=== PATIENT | male | born 1960 | race Caucasian/White ===

== ENCOUNTER 2021-02-13 08:05 | Emergency (ER) | payer OTHER, SELFPAY ==
--- NOTE | ~2021-02-13 | XR_ITS ---
EXAMINATION: XR elbow LT min 3V EXAM DATE: 02/13/2021 08:33 INDICATION: swelling, fall onto elbow x 4 days ago . TECHNIQUE: Left elbow frontal, lateral with flexion, and oblique projections obtained and reviewed. There is no prior study for comparison. FINDINGS: Left elbow anterior humeral line intact. There are no acute fractures or dislocations i dentified. There is no subcutaneous gas. Large amount of posterior soft tissue swelling, some over the olecranon bursa which could indicate bursal fluid or blood products given history. No elbow joint effusion suspected. There are no radiopaque foreign bodies. IMPRESSION: Generalized posterior swelling with more focal prominence over olecranon bursa, could be effusion or blood within. No acute osseous findings. Reviewed, dictated and finalized at location A. IMPRESSION: Generalized posterior swelling with more focal prominence over olec ranon bursa, could be effusion or blood within. No acute osseous findings.
[2021-02-13 08:12] VITALS: BP 171/84; PULSE 79; RESP 16; TEMP 36.8; O2SAT 100
--- NOTE | 2021-02-13 08:27 | ED.UPPEXIN ---
HPI - Extremity Injury (Upper) General Chief Complaint: Fall Stated Complaint: fall elbow injury Time Seen by Provider: 02/13/21 08:13 Source: patient and RN notes reviewed Mode of arrival: ambulatory Limitations: no limitations History of Present Illness HPI narrative: This is a 61 year old male right hand dominant who presents for evaluation left elbow pain s/p fall. Patient states he fell on Friday and he hit his left elbow on door frame of his home. He denies hitting his head or LOC. He has been having pain to his left elbow since his fall. He reports he had redness to his left forearm yesterday but is has resolved. He reports tingling to his fingers. Denies fever or chills. His last tetanus was 5 years ago. Pain worse with movement. Related Data Allergies Allergy/AdvReac Type Severity Reaction Status Date / Time No Known Allergies Allergy Mild Verified 11/25/09 23:47 Review of Systems Review of Systems: All systems reviewed & are unremarkable except as noted in HPI and below PMFSH Past Medical History Medical History (Updated 02/13/21 @ 09:26 by Gisela Childers MD) Hepatitis C Surgical History Surgical History (Updated 02/13/21 @ 08:31 by Gisela Childers MD) Hx of cholecystectomy Social History Social History (Updated 02/13/21 @ 08:31 by Gisela Childers MD) Smoking packs per day: 2 Smoking cigarettes per day: 40.0 Smoking status: Current every day smoker Alcohol intake: former 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 FROM. Psych: Mental Status: mental status grossly normal Affect: normal affect Course Reevaluation(s) Reevaluation #1: I discussed with patient xray findings. He will be treated for bursitis possible infection. Date: 02/13/21 Time: 09:23 Vital Signs Vital signs: Vital Signs Temperature 98.2 F 02/13/21 08:12 Pulse Rate 79 02/13/21 08:12 Respiratory Rate 16 02/13/21 08:12 Blood Pressure 171/84 H 02/13/21 08:12 Pulse Oximetry 100 02/13/21 08:12 Temperature 98.2 F 02/13/21 08:12 Pulse Rate 74 02/13/21 09:44 Respiratory Rate 12 02/13/21 09:44 Blood Pressure 145/90 H 02/13/21 09:44 Pulse Oximetry 98 02/13/21 09:44 MDM - Extremity Injury (Upper) Imaging Data Radiologist's impression: ITS Impressions Elbow X-Ray 02/13/21 08:48 IMPRESSION: Generalized posterior swelling with more focal prominence over olecranon bursa, could be effusion or blood within. No acute osseous findings. Discharge Plan Discharge Clinical Impression: Bursitis of left elbow Qualifiers: Elbow bursitis location: olecranon bursitis Qualified Code(s): M70.22 - Olecranon bursitis, left elbow Patient Disposition: Home, Self-Care Condition: Stable Instructions: Antibiotic Form, Elbow Bursitis (ED) Additional Instructions: today you were being treated for inflammation of your bursa. Take antibiotics as prescribed. Prescriptions: New doxycycline monohydrate 100 mg tablet 100 mg PO BID Qty: 14 RF: 0 cephalexin 500 mg capsule 500 mg PO Q6H 7 Days Qty: 28 RF: 0 Follow-up/Referrals: Timoteo Michel MD [Physician] - PHYSICIAN,SUPERVISOR INSTRUMENT MAINTENANCE [Primary Care Provider] -
[2021-02-13] MEDS: IBUPROFEN 600 MG TABLET PO (08:42)
[2021-02-13] MEDS: CEPHALEXIN 500 MG CAPSULE PO (09:31)
[2021-02-13] MEDS: DOXYCYCLINE HYCLATE 100 MG TABLET PO (09:31)
[2021-02-13 09:44] VITALS: BP 145/90; PULSE 74; RESP 12; O2SAT 98
== END 2021-02-13 09:45 | disposition home or self-care (01) ==
PROVIDERS: Emergency Provider General Practice
DX: M70.22 Olecranon bursitis, left elbow (principal); F17.210 Nicotine dependence, cigarettes, uncomplicated; W01.198A Fall on same level from slipping, tripping and stumbling with subsequent striking against other object, initial encounter
CPT/HCPCS: 73080; 99283; A9270

== ENCOUNTER 2021-04-09 08:45 | Outpatient (CLI) | payer OTHER, SELFPAY ==
--- NOTE | 2021-04-09 | EST_ITS ---
Patient Info Name: Aguila Miller Age: 61 years : 1960 Gender: Male Ht: 73 in Wt: 190 lbs BSA: 2.11 m2 HR: 75 bpm BP: 167 / 98 mmHg Heart Rhythm: Sinus Rhythm Exam Date: 04/09/2021 9:55 AM Exam Location: [facility] Stress Patient Status: Outpatient Admit Date: 04/09/2021 Staff Ordering Physician: ChristianoRossy Attending Provider: Christiano, Rossy LEONARDO Exercise Technologist: Jessica Anderson CT Exercise Physician: Tl Godfrey MD Exam Type: CA stress test treadmill Study Info Indications I20.0 - Unstable angina An exercise stress test was performed. Summary 1. Exercise-induced chest tightness which resolved soon in recovery. 2. No ischemic EKG changes induced up to level of 87% of max predicted heart rate for age. 3. Hypertensive blood pressure response exercise. 4. Because of his risk factors and reproducible chest pain with exercise, further cardiac evaluation is appropriate and recommended. Protocol: [facility] Stress ECG Details Stage: REST Duration (min): 3 min : 42 sec Speed (mph): 0.0 Grade (%): 0 HR (bpm): 81 SBP (mmHg): 167 DBP (mmHg): 98 METS: --- Stage: REST Duration (min): 22 min : 42 sec Speed (mph): 0.0 Grade (%): 0 HR (bpm): 85 SBP (mmHg): 167 DBP (mmHg): 98 METS: --- Stage: STAGE 1 Duration (min): 1 min : 0 sec Speed (mph): 1.7 Grade (%): 10 HR (bpm): 112 SBP (mmHg): 167 DBP (mmHg): 98 METS: --- Stage: STAGE 1 Duration (min): 2 min : 0 sec Speed (mph): 1.7 Grade (%): 10 HR (bpm): 116 SBP (mmHg): 167 DBP (mmHg): 98 METS: --- Stage: STAGE 1 Duration (min): 3 min : 0 sec Speed (mph): 1.7 Grade (%): 10 HR (bpm): 120 SBP (mmHg): 217 DBP (mmHg): 80 METS: --- Stage: STAGE 2 Duration (min): 1 min : 0 sec Speed (mph): 2.5 Grade (%): 12 HR (bpm): 127 SBP (mmHg): 217 DBP (mmHg): 80 METS: --- Stage: STAGE 2 Duration (min): 2 min : 0 sec Speed (mph): 2.5 Grade (%): 12 HR (bpm): 130 SBP (mmHg): 213 DBP (mmHg): 88 METS: --- Stage: STAGE 2 Duration (min): 3 min : 0 sec Speed (mph): 3.4 Grade (%): 14 HR (bpm): 138 SBP (mmHg): 213 DBP (mmHg): 88 METS: --- Stage: RECOVERY Duration (min): 1 min : 0 sec Speed (mph): 0.0 Grade (%): 0 HR (bpm): 115 SBP (mmHg): 180 DBP (mmHg): 87 METS: --- Stage: RECOVERY Duration (min): 2 min : 0 sec Speed (mph): 0.0 Grade (%): 0 HR (bpm): 99 SBP (mmHg): 180 DBP (mmHg): 87 METS: --- Stage: RECOVERY Duration (min): 3 min : 0 sec Speed (mph): 0.0 Grade (%): 0 HR (bpm): 99 SBP (mmHg): 178 DBP (mmHg): 87 METS: --- Stage: RECOVERY Duration (min): 3 min : 19 sec Speed (mph): 0.0 Grade (%): 0 HR (bpm): 93 SBP (mmHg): 178 DBP (mmHg): 87 METS: --- Rest HR: 85 bpm Peak HR:
== END 2021-04-09 08:46 | disposition home or self-care (01) ==
LOC: ANHCARD 08:47
PROVIDERS: Visit Provider Physician Assistant
DX: I20.9 Angina pectoris, unspecified (principal)
CPT/HCPCS: 93017

== ENCOUNTER 2021-04-12 08:07 | Emergency (ER) | payer OTHER, SELFPAY ==
[2021-04-12 08:18] VITALS: BP 155/98; PULSE 90; RESP 20; TEMP 36.5; O2SAT 100
[2021-04-12 09:13] LABS: Basophils Absolute Auto 0.1 K/mm3 (0.0-0.1); Basophils Percent Auto 0.6 % (0.2-1.2); Eosinophils Absolute Auto 0.5 K/mm3 (0-0.3); Eosinophils Percent Auto 4.6 % (0-4.4); Hematocrit 43.4 % (42.0-52.0); Hemoglobin 14.9 g/dL (14.0-18.0); Immature Granulocyte Absolute 0.03 K/mm3 (0.00-0.031); Immature Granulocyte Percent A 0.3 % (0-0.5); Lymphocytes Absolute Auto 1.79 K/mm3 (0.9-3.2); Lymphocytes Percent Auto 18.2 % (18.3-44.2); Mean Corpuscular HGB Conc 34.3 g/dl (32-36); Mean Corpuscular Hemoglobin 30.3 pg (26-34); Mean Corpuscular Volume 88.4 fl (80-100); Mean Platelet Volume 8.6 fl (7.4-10.4); Monocytes Absolute Auto 0.9 K/mm3 (0.1-0.6); Monocytes Percent Auto 8.8 % (2.6-8.5); Neutrophils Absolute Auto 6.7 K/mm3 (1.3-6.7); Neutrophils Percent Auto 67.5 % (45.5-73.1); Platelet Count Result 328 k/mm3 (150-375); Red Blood Count 4.91 M/mm3 (4.6-6.20); Red Cell Distribution Width 13.2 % (11.5-14.5); White Blood Count 9.9 K/mm3 (4.5-10.0)
[2021-04-12 09:26] LABS: Alanine Aminotransferase 68 U/L (4-50); Albumin Level 4.4 g/dL (3.5-5.1); Alkaline Phosphatase 98 U/L (38-126); Anion Gap 7 mmol/L (8-16); Aspartate Amino Transferase 48 U/L (17-59); Bilirubin,Total 0.7 mg/dL (0.2-1.3); Blood Urea Nitrogen 12 mg/dL (9-20); Calcium 9.6 mg/dL (8.4-10.2); Carbon Dioxide 26 mmol/L (22-30); Chloride 100 mmol/L (98-107); Estimated CRCL calculation 85 ml/min; Estimated Glomerular Filt Rate > 60; Glucose 103 mg/dL (65-110); Potassium 4.5 mmol/L (3.4-5.0); Sodium 133 mmol/L (137-145)
[2021-04-12 09:30] VITALS: BP 147/96; PULSE 73; RESP 20; O2SAT 98
[2021-04-12 09:33] LABS: D Dimer 0.46 ug/mL (<0.48)
[2021-04-12] MEDS: IBUPROFEN 400 MG TABLET 800 MG PO (09:55)
[2021-04-12] MEDS: CYCLOBENZAPRINE HCL 10 MG TABLET PO (09:55)
--- NOTE | 2021-04-12 09:59 | ED.EXTPRO ---
HPI - Extremity Problem General Chief complaint: Extremity Problem,Nontraumatic Stated complaint: Numbness to right foot Time Seen by Provider: 04/12/21 08:11 Source: patient Mode of arrival: ambulatory Limitations: no limitations History of Present Illness HPI Narrative: 61-year-old male Usually healthy Here for back pain and a numb feeling in his right leg He reports that he has had some back discomfort for a few weeks No history of injury, pain is in the low back in the right buttocks, and sometimes worse with movements He says he is usually very active but this has been limiting him and this morning he felt like the bottom of his foot and the side of his lower leg felt numb when he awakened This is improving when he is seen and nearly back to normal He saw his PCP in [place] 2 or 3 weeks ago and had a stress test done which he passed and sounds like he might have hepatitis C as well, but no evaluation of the back symptoms was done and when he had the numbness this morning he understandably decided to be evaluated in the ED No history of malignancy, no IV drug use, no fever, no bowel or bladder symptoms He smokes 2 packs a day Related Data Allergies Allergy/AdvReac Type Severity Reaction Status Date / Time No Known Allergies Allergy Mild Verified 04/12/21 08:21 Review of Systems Review of Systems: All systems reviewed & are unremarkable except as noted in HPI and below Constitutional: Constitutional: Reports no additional constitutional complaints, Denies chills, Reports fatigue, Denies fever(s), Denies headache(s) and Reports weakness Eyes: Eyes: Reports no additional eye complaints and Denies change in vision ENT: Denies headache(s) and Denies sore throat Cardiovascular: Cardiovascular: Reports chest pain and Denies dyspnea Respiratory: Respiratory: Denies cough and Denies dyspnea Gastrointestinal: Gastrointestinal: Denies abdominal pain, Denies diarrhea, Denies nausea and Denies vomiting Genitourinary: Genitourinary: Denies dysuria and Denies urinary frequency Musculoskeletal: Musculoskeletal: Reports back pain, Reports myalgias, Denies deformity, Denies arthralgias, Denies joint swelling, Reports muscle cramps and Denies numbness Integumentary/Breasts: Skin/Breast: Denies rash and Denies wounds Neurologic: Denies headache(s), Denies focal weakness and Reports numbness Psychiatric: Psychiatric: Reports no additional psychiatric complaints Endocrine: Endocrine: Reports no additional endocrine complaints Hematologic/Lymphatic: Hematologic/Lymphatic: Reports no additional hematologic/lymphatic complaints Allergic/Immunologic: Allergic/Immunologic: Reports no additional allergic/immunologic complaints PMFSH Past Medical History Medical History Hepatitis C Surgical History Surgical History Hx of cholecystectomy Social History Social History Smoking packs per day: 2 Smoking cigarettes per day: 40.0 Smoking status: Current every day smoker Alcohol intake: former 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 Exam Const: General: cooperative, no acute distress and alert Orientation/consciousness: patient oriented x3 (alert) HENMT: Head: normal to inspection, normocephalic and atraumatic Ears: external ears normal General nose exam: no epistaxis Eyes: Conjunctivae: conjunctivae normal EOM: EOMs intact bilaterally Neck: Neck: normal visual inspection, supple and no JVD Resp: Effort & Inspection: normal respiratory effort and not labored Auscultation: clear to auscultation bilaterally and other (BS =) Cardio: Rate: regular rate Rhythm: regular rhythm Heart sounds: no murmurs GI: GI Palp: Yes Soft to palpation and No Tenderness to palpation present (GI) Back/Spine/Pelvis: Other: There is mild lower lumbar and r
[2021-04-12 10:33] LABS: Folic Acid 7.2 ng/mL (2.76->20)
[2021-04-12 10:35] VITALS: BP 155/98; PULSE 74; RESP 16; O2SAT 100
[2021-04-12 12:02] LABS: Total Triiodothyronine (T3) 1.72 NG/ML (0.97-1.69)
== END 2021-04-12 10:40 | disposition home or self-care (01) ==
PROVIDERS: Emergency Provider Emergency Medicine
DX: M54.41 Lumbago with sciatica, right side (principal); F17.210 Nicotine dependence, cigarettes, uncomplicated
CPT/HCPCS: 36415; 80053; 82607; 82746; 84439; 84443; 84480; 85025; 85380; 99283; A9270

== ENCOUNTER 2021-05-02 08:58 | Outpatient (CLI) | payer OTHER, SELFPAY ==
--- NOTE | 2021-05-02 | ECG_ITS ---
Measurements Intervals [place] Rate: 61 P: 56 MS: 175 QRS: 63 QRSD: 102 T: 65 QT: 378 QTc: 382 Interpretive Statements SINUS RHYTHM NORMAL ECG Electronically Signed On 05-02-2021 10:28:37 LIFE SKILLS TEACHER by Kev Mcrae D.O.
--- NOTE | ~2021-05-02 | XR_ITS ---
EXAMINATION: XR chest 2V DATE: 05/02/2021 09:49 INDICATION: Angina pectoralis TECHNIQUE: PA and lateral views of the chest were obtained. COMPARISON: Chest radiograph dated 08/30/2015 FINDINGS: The lungs remain clear with no focal airspace opacities, pulmonary edema, pleural effusion or pneumot horax. The cardiomediastinal silhouette is normal. Cholecystectomy clips in right upper quadrant. Mil d thoracic spondylosis. IMPRESSION: 1. No acute cardiopulmonary disease. Reviewed, dictated and finalized at location A. NING STAFF SUPERVISOR
--- NOTE | ~2021-05-02 | CT_ITS ---
EXAMINATION: CT lung screening DATE: 05/02/2021 09:15 INDICATION: EDEMA OF LOWER EXTREMITY TECHNIQUE: Computed tomography (CT) of the chest was performed without intravenous contrast. Addition al 3D reconstructions utilizing coronal maximum intensity projection (MIP) were performed. Automated exposure control and iterative reconstruction technique were employed. The dose-length product was 14 4.24 mGy-cm. COMPARISON: None FINDINGS: Mild emphysema the apices. 4 mm pulmonary nodules in the right middle lobe and a couple in the left l ower lobe. No pneumonia, pulmonary edema or pleural effusion. Heart size is normal. No pericardial ef fusion. Thoracic aorta is normal in caliber. No pathologically enlarged thoracic lymphadenopathy. Cho lecystectomy clips the gallbladder fossa. Small hepatic calcification consistent with old granulomato us disease. Couple subcentimeter low-attenuation lesions at the dome of the liver most likely hepatic cysts or hemangiomas. Mild thoracic spondylosis with chronic appearing minimal to mild anterior wedg ing at T11-L1. IMPRESSION: 1. Lung-RADS category 2: Benign appearance or behavior. Continue annual screening with noncontrast lo w-dose chest CT in 12 months. Reviewed, dictated and finalized at location A. PILOT IMPRESSION: 1. Lung-RADS category 2: Benign appearance or behavior. Continue annual screeni ng with noncontrast low-dose chest CT in 12 months.
--- NOTE | ~2021-05-02 | US_ITS ---
EXAMINATION: US venous doppler LE RT DATE: 05/02/2021 09:55 INDICATION: Right lower limb swelling TECHNIQUE: Grayscale ultrasound images without and with compression and Doppler ultrasound images of the right lower extremity veins were obtained. COMPARISON: None. FINDINGS: The visualized portions of right common femoral vein, profunda (deep) femoral vein, femoral vein, pop liteal vein, posterior tibial veins, peroneal veins, gastrocnemius vein and greater saphenous vein ou tflow are patent. IMPRESSION: 1. No deep venous thrombosis in the right lower limb. Reviewed, dictated and finalized at location A. BER RUNNER
--- NOTE | ~2021-05-02 | US_ITS ---
EXAMINATION: US soft tissue head and neck DATE: 05/02/2021 09:56 INDICATION: Localized enlarged lymph nodes. TECHNIQUE: Multiple grayscale and Doppler ultrasound images of the neck were obtained. COMPARISON: None FINDINGS: There are normal lymph nodes in the neck bilaterally. IMPRESSION: 1. No abnormal neck mass or lymphadenopathy. Reviewed, dictated and finalized at location B. CLE UPHOLSTERER
== END 2021-05-02 08:59 | disposition home or self-care (01) ==
LOC: ANHIMG 09:00
PROVIDERS: PCP Physician Assistant; Visit Provider Physician Assistant
DX: R59.0 Localized enlarged lymph nodes (principal); R60.0 Localized edema
CPT/HCPCS: 71046; 71271; 76536; 93005; 93971

== ENCOUNTER → 2021-06-11 00:46 | Outpatient (CLI) | payer OTHER, SELFPAY ==
[2021-06-11 15:44] LABS: SARS-CoV-2 RNA PCR Negative
== END ==
PROVIDERS: PCP Physician Assistant; Visit Provider Internal Medicine Cardiovascular Disease
DX: Z01.812 Encounter for preprocedural laboratory examination (principal); Z20.822 Contact with and (suspected) exposure to COVID-19
CPT/HCPCS: C9803; U0003; U0005

== ENCOUNTER 2021-06-14 00:17 | Day surgery (SDC) | payer OTHER, SELFPAY ==
[2021-06-13 13:44] VITALS: BMI 25.0
[2021-06-14] VITALS (19 sets, daily range): BP systolic 117–157; BP diastolic 72–97; PULSE 67–89; RESP 14–22; TEMP 36.8–37.1; O2SAT 22–100; BMI 25.1
[2021-06-14] MEDS: SODIUM CHLORIDE 0.9% IV 500 ML 100 ML IV CONT (10:13)
--- NOTE | 2021-06-14 10:27 | PM.IMHP ---
H&P: HPI History of Present Illness Date/Time: 06/14/21 10:27 Chief Complaint: c.p Narrative: This 61-year-old patient with past history of chronic tobacco use, hypertension who presents for evaluation for chest pain. Assist her with dyspnea on exertion especially when he gets upset relieved by nitroglycerin. Worsening dyspnea on exertion for last 1 month. Review of Systems Review of Systems: All systems reviewed & are unremarkable except as noted in HPI and below Constitutional: Constitutional: Denies chills, Denies fatigue, Denies fever(s), Denies headache(s) and Denies snoring Eyes: Eyes: Denies eye discharge and Denies loss of vision ENT: Denies dizziness, Denies headache(s), Denies nasal discharge and Denies sore throat Cardiovascular: Cardiovascular: Reports as per HPI, Reports chest pain, Denies syncope, Denies rapid heart rate, Denies leg edema, Denies dyspnea, Reports dyspnea on exertion, Denies orthopnea and Denies paroxysmal nocturnal dyspnea Respiratory: Respiratory: Denies chest congestion, Denies cough, Denies dyspnea, Reports dyspnea on exertion, Denies snoring and Denies wheezing Gastrointestinal: Gastrointestinal: Denies abdominal pain, Denies diarrhea, Denies nausea and Denies vomiting Genitourinary: Genitourinary: Denies hematuria, Denies dysuria, Denies flank pain and Denies urinary frequency Musculoskeletal: Musculoskeletal: Denies myalgias, Denies arthralgias and Denies joint swelling Neurologic: Denies Abnormal speech present, Denies dizziness, Denies syncope, Denies headache(s), Denies focal weakness and Denies loss of vision Psychiatric: Psychiatric: Denies anxiety and Denies depression Endocrine: Endocrine: Denies cold intolerance, Denies fatigue and Denies heat intolerance Hematologic/Lymphatic: Hematologic/Lymphatic: Denies easy bleeding and Denies easy bruising Allergic/Immunologic: Allergic/Immunologic: Denies urticaria and Denies wheezing 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 Spiritual care concerns: No Meds Home Medications and Allergies Home Medications Medication Instructions Recorded Confirmed Type aspirin 81 mg PO DAILY 06/13/21 06/13/21 History losartan 50 mg PO DAILY 06/13/21 06/14/21 History metoprolol succinate [Toprol XL] 50 mg PO DAILY 06/13/21 06/14/21 History nitroglycerin 0.4 mg SUBLINGUAL DIRECTED 06/13/21 06/13/21 History Allergies Allergy/AdvReac Type Severity Reaction Status Date / Time No Known Allergies Allergy Mild Verified 06/14/21 09:41 Vital Signs Vital Signs - 24 hr 06/14/21 09:49 Temperature 36.8 C Pulse Rate 83 Respiratory Rate 14 Blood Pressure 142/84 H Pulse Oximetry 100 Exam Const: General: cooperative, healthy appearing, comfortable, no acute distress and well developed Nutritional Appearance: well nourished Orientation/consciousness: patient oriented x3 HENMT: Head: normal to inspection, normocephalic and atraumatic Ears: hearing grossly normal bilaterally and external ears normal General nose exam: Normal external nose present and Normal nares present Face and sinus: normal facial exam and no erythema Mouth: Yes moist mucous membranes and No lip abnormal Throat: uvula midline Eyes: General: appearance normal, both eyes and all related structures Eyelids: eyelids normal Sclera: sclerae normal Neck: Neck: normal visual inspection and full ROM Thyroid: thyroid normal Carotids: no bruits Lymphatic: lymphedema not noted Chest: Chest palpation & inspec
--- NOTE | 2021-06-14 10:29 | WPDMODSED ---
Moderate Sedation Note-Pt Data Patient Data Allergies Allergy/AdvReac Type Severity Reaction Status Date / Time No Known Allergies Allergy Mild Verified 06/14/21 09:41 Home Medications Medication Instructions Recorded Confirmed Type aspirin 81 mg PO DAILY 06/13/21 06/13/21 History losartan 50 mg PO DAILY 06/13/21 06/14/21 History metoprolol succinate [Toprol XL] 50 mg PO DAILY 06/13/21 06/14/21 History nitroglycerin 0.4 mg SUBLINGUAL DIRECTED 06/13/21 06/13/21 History Current Medications: Active Medications Sodium Chloride (Normal Saline Iv) 500 mls @ 100 mls/hr IV CONT .Q5H OLIVER Last Admin: 06/14/21 10:13 Dose: 100 mls/hr Documented by: Sedation/Anesthesia: No previous sedation/anesthesia problems (including family history). 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 Spiritual care concerns: No Mod Sed Physical Exam Physical Exam Pre Procedural Exam: Normal: Appearance, Eyes, Ears, Nose, Neck, Throat, Airway, Lungs, Heart Size, Heart Rate, Heart Rhythm, Neuro Exam, Abdomen, Liver, Kidneys, Spleen, Breasts, Genitalia, Extremities and Skin Hours since solid foods: 8 Hours since liquid intake: 8 Mallampati Classification: class 1 Internal Medicine - PN: Obj Da Vital Signs Vital Signs: Vital Signs - 24 hr 06/14/21 09:49 Temperature 36.8 C Pulse Rate 83 Respiratory Rate 14 Blood Pressure 142/84 H Pulse Oximetry 100 Meds/Results Medications: Active Medications Generic Name Dose Route Start Last Admin Trade Name Freq PRN Reason Stop Dose Admin Sodium Chloride 500 mls @ 100 mls/hr 06/14/21 07:00 06/14/21 10:13 Normal Saline Iv IV CONT 100 mls/hr .Q5H OLIVER Administration Labs CBC & Chem 7: 06/14/21 09:34 ASA Classification/Sedation ASA Classification/Sedation ASA Class: I Emergent: No Risks: Risks, benefits and alternatives explained and patient/family accepted plan for sedation. Patient re-evaluated immediately prior to sedation.
--- NOTE | 2021-06-14 10:29 | WPDCARDPROC ---
Cardiac Cath Procedure Note Date of procedure:: 06/14/21 Performing physician:: Anil Gunter MD date of service 06/14/2021 Indication:: recurrent chest pain and shortness of breath on exertion. Brief clinical history:: This 61-year-old patient with past history of chronic tobacco use, hypertension who presents for evaluation for chest pain. Assist her with dyspnea on exertion especially when he gets upset relieved by nitroglycerin. Worsening dyspnea on exertion for last 1 month. Procedure Procedure performed:: 1-Moderate sedation that started at 10:25 a.m. and ended at 10:50 a.m. total duration 25 minutesusing 2mg of Versed and 50mcg fentanyl. The registered nurse was domingo cordova 2-Selective left and right coronary angiogram. 3-Left heart catheterization with measurement of LVEDP and measurement of gradient across aortic valve. 4- LV angiogram. 4-Right common femoral arterial angiogram. Sedation/Medication given:: Moderate sedation. Access site:: Right common femoral artery. Estimated blood loss:: 10cc Procedure note:: After informed consent patient was brought in to [facility] with the was draped and prepped in usual manner. Moderate sedation was given and the right groin was infiltrated using 1% lidocaine. Five Moroccan sheath was obtained using micropuncture needle and the modified Seldinger technique. Selective left coronary angiogram was done using JL4 catheter with the tip of the catheter placed in the left main coronary artery. Selective right coronary angiogram was done using JR4 catheter with the tip of the catheter placed to the right coronary artery. After that 5 Moroccan pigtail catheter was advanced across the aortic valve into the left ventricle with measurement of LVEDP and measurement of gradient across aortic valve. LV angiogram was done as well.Right common femoral arterial angiogram was done. Findings:: 1- left coronary artery is a large artery that divides into large LAD, large circumflex artery. Left main is Free of disease. 2- left anterior descending artery is a large artery that runs and wraps around the apex. Free of disease. Large diagonal branch proximally free of disease. 3- leftcircumflex artery is a large artery Large artery and free of disease. 4- right coronary artery is Large artery and dominant and free of disease. 5- LVEDP was 15 mm mercuryand no gradient across aortic valve. 6- opening arterial pressure was 150/90and closing pressure was 125/70 7- right femoral artery angiogram shows 60% just above the bifurcation. 8- LV angiogram shows ejection fraction 65% and no wall motion abnormalities. No disease seen in the aortic root. Conclusion:: no CAD. 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 Assessment and Plan Additional Plan - Smoking cessation - aggressive risk factor modification for CAD. - we will order ankle brachial index
[2021-06-14 11:02] LABS: Basophils Absolute Auto 0.1 K/mm3 (0.0-0.1); Basophils Percent Auto 0.7 % (0.2-1.2); Eosinophils Absolute Auto 0.3 K/mm3 (0-0.3); Eosinophils Percent Auto 2.7 % (0-4.4); Hematocrit 38.3 % (42.0-52.0); Hemoglobin 12.9 g/dL (14.0-18.0); Immature Granulocyte Absolute 0.03 K/mm3 (0.00-0.031); Immature Granulocyte Percent A 0.3 % (0-0.5); Lymphocytes Percent Auto 20.1 % (18.3-44.2); Mean Corpuscular HGB Conc 33.7 g/dl (32-36); Mean Corpuscular Hemoglobin 30.5 pg (26-34); Mean Corpuscular Volume 90.5 fl (80-100); Mean Platelet Volume 9.3 fl (7.4-10.4); Monocytes Percent Auto 10.2 % (2.6-8.5); Neutrophils Absolute Auto 6.6 K/mm3 (1.3-6.7); Platelet Count Result 428 k/mm3 (150-375); Red Blood Count 4.23 M/mm3 (4.6-6.20); Red Cell Distribution Width 13.2 % (11.5-14.5)
[2021-06-14 11:11] LABS: Anion Gap 3 mmol/L (8-16); Blood Urea Nitrogen 12 mg/dL (9-20); Calcium 8.9 mg/dL (8.4-10.2); Carbon Dioxide 27 mmol/L (22-30); Chloride 106 mmol/L (98-107); Estimated CRCL calculation 85 ml/min; Estimated Glomerular Filt Rate > 60; Glucose 103 mg/dL (65-110); Sodium 136 mmol/L (137-145)
[2021-06-14] MEDS: SODIUM CHLORIDE 0.9% IV 1,000 ML 125 ML IV CONT (11:15)
== END 2021-06-14 18:05 | disposition home or self-care (01) ==
PROVIDERS: PCP Physician Assistant; Visit Provider Internal Medicine Cardiovascular Disease
PROC: 4A023N7 Measurement of Cardiac Sampling and Pressure, Left Heart, Percutaneous Approach (ICD-10-PCS; CPT 93452; principal; 2021-06-14 10:30)
DX: I70.201 Unspecified atherosclerosis of native arteries of extremities, right leg (principal); R07.9 Chest pain, unspecified; R06.09 Other forms of dyspnea; I10 Essential (primary) hypertension; F17.210 Nicotine dependence, cigarettes, uncomplicated
CPT/HCPCS: 36415; 80048; 85025; 93458; A9270; C1887; C1894; J1644; J2250; J3010; J7040